=== PATIENT | female | born 1945 | race Caucasian/White ===

== ENCOUNTER 2016-09-17 11:35 | Emergency (ER) | payer OTHER ==
[~2016-09-17] VITALS: Ht 162.6 cm; Wt 59.4 kg
[~2016-09-17 11:35] MED LIST: DIAZ5 PO; HYDR-3516 PO; IBUP-232 PO
[2016-09-17 12:07] VITALS: BP 145/80; PULSE 96; RESP 20; TEMP 98.2; O2SAT 97
[2016-09-17] MEDS ORDERED: FOSA70TA PO (12:44)
--- NOTE | 2016-09-17 13:40 | PD ---
HPI Chief Complaint: ENT Complaint Time Seen by Provider: 13:40 Travel History International Travel<30 days: No Contact w/Intl Traveler<30days: No Traveled to known affect area: No History of Present Illness HPI 70-year-old female presents to the emergency Department with complaint of sore throat since . Reports fever with MAXIMUM TEMPERATURE of 102 three days ago. Temperature of 100.0 this morning and took Advil prior to arrival to the ER. Started out as throat irritation with worsening. Reports burning sensation now. Does have a cough that is worse at night and occasionally throughout the day. Denies nasal congestion, ear pain, headache, nausea, vomiting, abdominal pain. Denies difficulty swallowing, unusual drooling, lump in throat. Reports painful swallowing. Has tried echinacea and other over-the- counter medications with no relief of symptoms. Advil has been reducing fever. After some the house have been sick also with similar symptoms. Allergies to Norgesic. Denies significant past medical history. No other modifying factors or associated signs and symptoms. 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) Asthma: No Autoimmune Disease: No Anxiety: No Depression: No Heart Rhythm Problems: No Cancer: No Cardiovascular Problems: No High Cholesterol: No Chemotherapy: No Chest Pain: No Congestive Heart Failure: No COPD: No Cerebrovascular Accident: No Diabetes: No Diminished Hearing: No Endocrine: No GERD: No Genitourinary: No Hepatitis: No Hiatal Hernia: No Immune Disorder: No Kidney Stones: No Musculoskeletal: Yes Neurologic: Yes Psychiatric: No Reproductive: Yes (adhesions from ovaries and removed fallopian tube) Respiratory: Yes Immunizations Current: Yes Migraines: No Radiation Therapy: No Renal Failure: No Seizures: No Sickle Cell Disease: No Sleep Apnea: No Thyroid Disease: No Ulcer: No Tetanus Vaccination: > 5 Years Influenza Vaccination: Yes ?: Not Menopausal: Yes Past Surgical History Abdominal Surgery: No AICD: No Arteriovenous Shunt: No Body Medical Devices: RIGHT WRIST HARDWARE Cardiac Surgery: No Ear Surgery: No Endocrine Surgery: No Eye Surgery: No Genitourinary Surgery: No Gynecologic Surgery: Yes (adhesions on ovaries and right fallopian removed) Insulin Pump: No Joint Replacement: No Neurologic Surgery: Yes (disintegrated disc between C5-6) Oral Surgery: Yes (tonsils and addenoids removec) Pacemaker: No Thoracic Surgery: No Tonsillectomy: Yes (& adenoids) Other Surgery: Yes (left elbow sx) Social History Alcohol Use: Yes (4-5 week) Tobacco Use: No Substance Use: No Allergies-Medications (Allergen,Severity, Reaction): Coded Allergies: Norgesic (Verified Allergy, Intermediate, Hives, 09/17/16) Reported Meds & Prescriptions Reported Meds & Active Scripts Active Magic Mouthwash Adult Liq (Multi-Ingredient Mouthwash/Gargle) 120 Ml Susp 5 Ml SWISH-SPIT Q3HR PRN Each 5 mL contains: Nystatin 200,000 units, Diphenhydramine 4.25 mg, Viscous Lidocaine 10 mg, Ortega syrup 0.8 mL Amoxicillin 500 Mg Tab 500 Mg PO BID 10 Days Reported Fosamax (Alendronate Sodium) 70 Mg Tab 70 Mg PO Q7D Review of Systems Except as stated in HPI: all other systems reviewed are Neg Physical Exam Narrative GENERAL: Well-nourished, well-developed female patient, in no acute distress SKIN: Warm and dry. No rash. HEAD: Atraumatic. Normocephalic. EYES: Pupils equal and round at 3 mm with brisk reaction. No scleral icterus. No injection or drainage. PERRLA. ENT: Mucosa pink and dry. Pharynx without erythema, exudate, or edema. No Uvular edema. No uvular, palatal, or tonsillar deviation. Airway patent. Voice is hoarse. EARS: Bilateral pinnae and external canals appear within normal limits. Bilateral tympanic membranes without erythema, dullness or perforation.. NECK: Trachea midline. Anterior cervical lymphadenopathy and tenderness. CARDIOVASCULAR: Regular rate and rhythm. No murmur appreciated. 3+ radial pulses. RESPIRATORY: No accessory muscle use. Clear to auscultation. Breath sounds equal bilaterally. GASTROINTESTINAL: Abdomen soft, non-tender, nondistended. Hepatic and splenic margins not palpable. Bowel sounds are active 4 quadrants. MUSCULOSKELETAL: No obvious deformities. No clubbing. No cyanosis. No edema. NEUROLOGICAL: Awake and alert. Oriented 3. No obvious cranial nerve deficits. Motor grossly within normal limits. Normal speech. Moves all extremities. PSYCHIATRIC: Appropriate mood and affect; insight and judgment normal. Data Data Last Documented VS Vital Signs Date Time Temp Pulse Resp B/P Pulse Ox O2 Delivery O2 Flow Rate FiO2 09/17/16 12:40 16 09/17/16 12:07 98.2 96 145/80 97 Orders Influenzae A/B Antigen (09/17/16 13:40) Group A Rapid Strep Screen (09/17/16 13:40) Strep Culture (Group A) (09/17/16 13:40) MDM Medical Decision Making Medical Screen Exam Complete: Yes Emergency Medical Condition: Yes Medical Record Reviewed: Yes Differential Diagnosis Pharyngitis, strep pharyngitis, viral pharyngitis Narrative Course 70-year-old female Patient with sore throat since . Denies lump in throat, difficulty swallowing, unusual drooling. MAXIMUM TEMPERATURE of 102 3 days ago. Temperature 100.0 prior to arrival this morning. Is unremarkable. Influenza and strep ordered. 1413: Influenza and strep negative. Patient requesting prescription for antibiotics despite findings. Discussed viral illness and symptom treatment. Amoxicillin and Magic mouthwash prescribed for home. Patient is medically cleared and stable for discharge. Discussed reasons to return to the emergency department. Instructed patient to follow up with primary care provider. Patient agrees with treatment plan. The patients vital signs are stable and the patient is stable for outpatient follow-up and treatment. Patient discharged home, stable and in no acute distress. Diagnosis Primary Impression: Viral pharyngitis Referrals: Primary Care Physician Patient Instructions: General Instructions, Pharyngitis (ED) Additional Instructions: Get plenty of sleep/rest Rest your voice Drink plenty of fluids to prevent dehydration Use warm saltwater gargles to soothe throat pain Use an air humidifier/turn off ceiling fans Use throat lozenges as needed for sore throat Use ibuprofen or acetaminophen as needed to relieve pain and fever Follow-up with your primary care provider within 2-4 days Return immediately to the emergency department Med/Other Pt SpecificInfo: Prescription(s) given Scripts Xdcvrjot-Gywoulfvuutkaks-Xmvrvxgzt Liq (Magic Mouthwash Adult Liq)120 Ml Susp5 Ml SWISH-SPIT Q3HR PRN (SORE THROAT) #120 ML Ref 0 Each 5 mL contains: Nystatin 200,000 units, Diphenhydramine 4.25 mg, Viscous Lidocaine 10 mg, Ortega syrup 0.8 mL Prov:Gardenia Martinez CODING TECHNICIAN 1/2/17 Amoxicillin 500 Mg Opi847 Mg PO BID 10 Days Ref 0 Prov:Gardenia Martinez 09/17/16 Disposition: 01 DISCHARGE HOME Condition: Stable Gardenia Martinez Sep 17, 2016 13:40
[2016-09-17] MEDS ORDERED: MAGICADU2 SWISH-SPIT (14:12)
[2016-09-17] MEDS ORDERED: AMOX500T PO (14:12)
== END 2016-09-17 14:20 | disposition home or self-care (01) ==
LOC: PHEFT 11:35
DX: J02.9 Acute pharyngitis, unspecified (principal)
CPT/HCPCS: 87081; 87804; 87880; 99283

== ENCOUNTER → 2017-04-11 | Outpatient (CLI) | payer OTHER ==
[~2017-04-11] MED LIST changes: +AMOX500T PO; -DIAZ5 PO; +FOSA70TA PO; -HYDR-3516 PO; -IBUP-232 PO; +MAGICADU2 SWISH-SPIT
[2017-04-11 07:43] LABS: AUTOMATED NEUTROPHIL # 3.2 TH/MM3 (1.8-7.7); BASOPHIL % 0.9 % (0.0-2.0); EOSINOPHIL # 0.3 TH/MM3 (0-0.4); EOSINOPHIL % 6.8 % (0.0-4.0); HEMATOCRIT 35.2 % (35.0-46.0); HEMO FLAGS DIFF FINAL; LYMPH % 22.1 % (9.0-44.0); LYMPHOCYTE # 1.1 TH/MM3 (1.0-4.8); MEAN CORPUSCULAR HEMOGLOBIN 21.6 PG (27.0-34.0); MEAN CORPUSCULAR HGB CONC 32.7 % (32.0-36.0); MONO % 8.1 % (0.0-8.0); NEUT % 62.1 % (16.0-70.0); PLATELET COUNT 255 TH/MM3 (150-450); RED BLOOD COUNT 5.33 MIL/MM3 (4.00-5.30); RED CELL DISTRIBUTION WIDTH 17.1 % (11.6-17.2); WHITE BLOOD COUNT 5.1 TH/MM3 (4.0-11.0)
[2017-04-11 08:06] LABS: ALT (GPT) 24 U/L (10-53); ANION GAP 6 MEQ/L (5-15); AST (GOT) 20 U/L (15-37); BICARBONATE 27.5 MEQ/L (21.0-32.0); BLOOD UREA NITROGEN 15 MG/DL (7-18); CHLORIDE 108 MEQ/L (98-107); GLOMERULAR FILTRATION RATE 85 ML/MIN (>89); GLUCOSE,FASTING 82 MG/DL (74-99); POTASSIUM 4.3 MEQ/L (3.5-5.1); SODIUM (NA) 141 MEQ/L (136-145)
[2017-04-11 08:08] LABS: ALKALINE PHOSPHATASE 59 U/L (45-117); HDL CHOLESTEROL 64.9 MG/DL (40.0-60.0); LDL CHOLESTEROL 106 MG/DL (0-99)
== END ==
LOC: CLAB 07:03
PROVIDERS: ATTEND Family Medicine
DX: M81.0 Age-related osteoporosis without current pathological fracture (principal)
CPT/HCPCS: 36415; 80053; 80061; 82306; 85025

== ENCOUNTER → 2017-06-28 | Outpatient (CLI) | payer OTHER ==
[~2017-06-28] MED LIST changes: +CALC1TAB87 PO; +CHOL1CAP14 PO; +CINN500C13 PO; +DICL75TA PO; +MILK140C PO; +MULTTAB67 PO; +TRAM50TA PO; +VITA200C3 PO; +VITA500T83 PO
[2017-06-28 09:47] LABS: AUTOMATED NEUTROPHIL # 3.4 TH/MM3 (1.8-7.7); BASOPHIL % 0.9 % (0.0-2.0); EOSINOPHIL # 0.2 TH/MM3 (0-0.4); EOSINOPHIL % 3.6 % (0.0-4.0); HEMATOCRIT 36.3 % (35.0-46.0); HEMO FLAGS DIFF FINAL; LYMPH % 20.9 % (9.0-44.0); LYMPHOCYTE # 1.1 TH/MM3 (1.0-4.8); MEAN CORPUSCULAR HEMOGLOBIN 20.9 PG (27.0-34.0); MEAN CORPUSCULAR HGB CONC 31.7 % (32.0-36.0); MONO % 7.8 % (0.0-8.0); NEUT % 66.8 % (16.0-70.0); PLATELET COUNT 246 TH/MM3 (150-450); RED BLOOD COUNT 5.49 MIL/MM3 (4.00-5.30); RED CELL DISTRIBUTION WIDTH 17.1 % (11.6-17.2); WHITE BLOOD COUNT 5.2 TH/MM3 (4.0-11.0)
[2017-06-28 09:57] LABS: APTT (PATIENT) 26.1 SEC (24.3-30.1); PROTHROMBIN TIME - PATIENT 10.8 SEC (9.8-11.6)
--- NOTE | 2017-06-28 10:11 | RADRPT ---
EXAM DATE/TIME: 06/28/2017 09:44 [facility] COMPARISON: CHEST SINGLE AP, April 30, 2016, 12:59. INDICATIONS : Evaluate for pneumothorax, pneumonia, or communicable disease. Pre-op for a total hip replacement. MEDICAL HISTORY : None. SURGICAL HISTORY : None. ENCOUNTER: Initial ACUITY: 1 day PAIN SCORE: 0/10 LOCATION: Bilateral chest FINDINGS: PA and lateral views of the chest reveal a 9 mm nodule a density projecting over the right upper lobe . This overlaps the anterior portion of the second rib. This is a new finding from the prior chest x- ray. Chronic interstitial changes are noted. No acute infiltrates or effusions. Eventration of the he midiaphragms observed. Heart is normal in size. Bony structures are unremarkable. CONCLUSION: 1. 9 mm nodule within the right upper lobe. This is a new finding. Further characterization with CT o f the thorax is needed. 2. No acute infiltrate. Sean Crespo Jr., MD on June 28, 2017 at 9:59 Board Certified Radiologist. This report was verified electronically.
[2017-06-28 10:23] LABS: BICARBONATE 27.4 MEQ/L (21.0-32.0); POTASSIUM 4.4 MEQ/L (3.5-5.1)
[2017-06-28 10:40] LABS: BLOOD, URINE NEG (NEG); GLUCOSE,URINE NEG (NEG); KETONE, URINE NEG (NEG); NITRITE,URINE NEG (NEG); SQUAMOUS EPITHELIAL CELL URINE <1 /hpf (0-5); URINE COLOR YELLOW (YELLW/STRAW)
[2017-06-28 10:45] LABS: COMMENT (UR) CULT NOT INDICATED; CULTURE IF INDICATED CULT NOT INDICATED
--- NOTE | 2017-06-28 14:22 | EKG ---
Date Performed: 06/28/2017 Time Performed: 08:48:57 PTAGE: 71 years EKG: Sinus rhythm NORMAL ECG NO PREVIOUS TRACING DOCTOR: Celestine Lara Interpretating Date/Time 06/28/2017 14:22:01
== END ==
LOC: CPRE 08:19
PROVIDERS: ATTEND Orthopaedic Surgery Sports Medicine
DX: Z01.810 Encounter for preprocedural cardiovascular examination (principal); Z01.812 Encounter for preprocedural laboratory examination; Z01.811 Encounter for preprocedural respiratory examination; M25.559 Pain in unspecified hip; M79.609 Pain in unspecified limb; Z96.60 Presence of unspecified orthopedic joint implant; Z13.9 Encounter for screening, unspecified; Z01.818 Encounter for other preprocedural examination; Z79.01 Long term (current) use of anticoagulants
CPT/HCPCS: 36415; 71020; 80048; 81001; 85025; 85610; 85730; 93005

== ENCOUNTER 2017-07-11 05:06 | Inpatient (IN) | payer OTHER ==
[~2017-07-11] VITALS: Ht 162.6 cm; Wt 61.1 kg
[~2017-07-11 05:06] MED LIST changes: -AMOX500T PO; -MAGICADU2 SWISH-SPIT
[2017-07-11] MEDS ORDERED: INSULIN HUMAN REGULAR 1,000 UNITS/10 ML VIAL SQ PRN (05:30)
[2017-07-11] MEDS ORDERED: TRANEXAMIC ACID INJ 915 MG in SODIUM CHLORIDE 0.9% INJ 100 ML IV SCH (05:30)
[2017-07-11] MEDS ORDERED: SODIUM CHLORID 0.9% 500 ML IV PRN (05:30)
[2017-07-11] MEDS ORDERED: LACTATED RINGER'S 1000 ML IV PRN (05:30)
[2017-07-11] MEDS ORDERED: VANCOMYCIN 1000 MG/NS 250 ML (for <70 kg) IV SCH ×2 (05:30)
[2017-07-11] MEDS ORDERED: ceFAZolin 2 GM PREMIX 50 ML IV SCH (05:30)
[2017-07-11] MEDS ORDERED: CHLORHEXIDINE GLUCONATE 4% SOLN 120 ML BTL TOPICAL SCH (05:30)
[2017-07-11] MEDS ORDERED: EXPAREL PERI-ARTICULAR INJECTION (TOTAL VOL. 60 ML) P-ARTICULR SCH ×2 (05:30)
[2017-07-11] MEDS ORDERED: POVIDONE IODINE 5% (ANTISEPSIS KIT) 4 APPLICATIONS EACH NARE PRN (05:30)
[2017-07-11] MEDS ORDERED: METOPROLOL TARTRATE 25 MG TAB PO PRN (05:30)
[2017-07-11] MEDS ORDERED: CHLORHEXIDINE GLUCONATE 2 % 1 PACK (2 CLOTHS) TOPICAL PRN (05:30)
[2017-07-11] MEDS ORDERED: OMEP40CA2 PO (05:44)
[2017-07-11] MEDS ORDERED: ACETAMINOPHEN 1000 MG/100 ML 100 ML IV ONE (06:15)
[2017-07-11] MEDS ORDERED: GENTAMICIN SULFATE 80 MG/2 ML VIAL ONE (07:16)
--- NOTE | 2017-07-11 08:25 | PD.OP ---
Operative Report Preoperative Diagnosis: (1) Arthritis of right hip Postoperative Diagnosis: (1) Arthritis of right hip Procedure: Right total hip arthroplasty Anesthesia: Frantz GOULD Surgeon: Michael Schaffer Medical Receptionist Assistant(s): Frantz GOULD Resident Surgeon: none Operation and Findings: see dictation Michael Schaffer MD Jul 11, 2017 08:25
[2017-07-11] MEDS ORDERED: MAGNESIUM HYDROXIDE SUSP 30 ML CUP PO PRN (08:30)
[2017-07-11] MEDS ORDERED: MISCELLANEOUS NURSING INFORMATION XX PRN (08:30)
[2017-07-11] MEDS ORDERED: LACTULOSE SYRUP 20 GM/30 ML CUP PO PRN (08:30)
[2017-07-11] MEDS ORDERED: NALOXONE HCL 0.4 MG/ML AMP IV PUSH PRN (08:30)
[2017-07-11] MEDS ORDERED: BISACODYL 10 MG SUPP RECTAL PRN (08:30)
[2017-07-11] MEDS ORDERED: SENNOSIDES 8.6 MG TAB PO PRN (08:30)
[2017-07-11] MEDS ORDERED: traMADol HCL 50 MG TAB PO PRN (08:30)
[2017-07-11] MEDS ORDERED: SODIUM CHLORIDE 0.9% FLUSH 10 ML FLUSH IV FLUSH PRN (08:30)
[2017-07-11] MEDS ORDERED: ONDANSETRON HCL 4 MG/2 ML VIAL IVP PRN (08:30)
[2017-07-11] MEDS ORDERED: oxyCODONE/ACETAMINOPHEN 5 MG/325 MG TAB PO PRN (08:30)
[2017-07-11] MEDS ORDERED: Post-op Orders (for Pharmacy) MISC XX ONE (08:54)
[2017-07-11] MEDS ORDERED: DO NOT ADM ANY ANTICOAGULANT DRUGS PRN (08:54)
[2017-07-11] MEDS: DOCUSATE SODIUM 50 MG/SENNA 8.6 MG TAB PO SCH ×2 (09:00→21:26)
[2017-07-11] MEDS: SODIUM CHLORIDE 0.9% FLUSH 10 ML FLUSH IV FLUSH SCH ×2 (09:00→21:27)
[2017-07-11] MEDS: PANTOPRAZOLE SOD 40 MG DELAYED RELEASE TAB PO SCH ×2 (09:30→12:57)
[2017-07-11] MEDS: ASCORBIC ACID 500 MG TAB PO SCH ×3 (09:30→21:26)
[2017-07-11] MEDS: MULTIVITAMIN TAB PO SCH (09:30)
[2017-07-11] MEDS: HYDROmorphone HCL PCA 6 MG/30 ML IV SCH ×2 (09:43→23:39)
[2017-07-11] MEDS: LACTATED RINGER'S 1000 ML INJ 1,000 ML IV SCH ×2 (09:44→22:24)
[2017-07-11 10:20] VITALS: BP 115/69; PULSE 76; RESP 18; TEMP 95.3; O2SAT 100
--- NOTE | 2017-07-11 12:47 | RADRPT ---
EXAM DATE/TIME: 07/11/2017 07:11 [facility] COMPARISON: No previous studies available for comparison. INDICATIONS : Right anterior hip replacement. MEDICAL HISTORY : Arthritis. SURGICAL HISTORY : Tonsillectomy. ENCOUNTER: Initial ACUITY: 1 day PAIN SCORE: Non-responsive. LOCATION: Right anterior hip. FINDINGS: 2 views of the right hip were obtained and demonstrate the patient is status post right hip arthropla sty. The femoral and acetabular components are intact and in normal alignment. There is overlying art ifact. CONCLUSION: Status post right hip arthroplasty. Edi Kebede MD on July 11, 2017 at 12:44 Board Certified Radiologist. This report was verified electronically.
[2017-07-11] MEDS: CHOLECALCIFEROL (VIT D3) 5000 UNIT CAP PO SCH (12:56)
[2017-07-11] MEDS: CALCIUM/VITAMIN D 250 MG/125 U TAB PO SCH (12:56)
[2017-07-11 13:38] VITALS: O2SAT 98
[2017-07-11] MEDS: PCA - TOTAL MG DILAUDID DELIVERED PER SHIFT OTHER SCH ×2 (14:00→21:27)
[2017-07-11 20:00] VITALS: RESP 18
[2017-07-11 20:15] VITALS: BP 121/69; PULSE 96; RESP 16; TEMP 97.1; O2SAT 99
[2017-07-11 21:35] VITALS: O2SAT 96
[2017-07-11] MEDS: oxyCODONE/ACETAMINOPHEN 5 MG/325 MG TAB PO PRN (23:51)
[2017-07-12] VITALS (8 sets, daily range): BP systolic 102–135; BP diastolic 53–70; PULSE 90–117; RESP 16–18; TEMP 96.9–100; O2SAT 95–99
[2017-07-12] MEDS: oxyCODONE/ACETAMINOPHEN 5 MG/325 MG TAB PO PRN ×3 (04:41→20:25)
[2017-07-12] MEDS: PCA - TOTAL MG DILAUDID DELIVERED PER SHIFT OTHER SCH ×3 (04:41→22:00)
[2017-07-12] MEDS ORDERED: XARE10TA PO (07:12)
[2017-07-12] MEDS ORDERED: OXYC-255 PO (07:12)
[2017-07-12] MEDS ORDERED: WHEEMIS3 (07:16)
[2017-07-12 07:19] LABS: HEMATOCRIT 25.1 % (35.0-46.0); REVIEW FLAG FINAL
--- NOTE | 2017-07-12 07:20 | PD.ORT.PN ---
Subjective Subjective Remarks Patient comfortable Objective Vitals Vital Signs Date Time Temp Pulse Resp B/P (MAP) Pulse Ox O2 Delivery O2 Flow Rate FiO2 07/12/17 04:41 18 07/12/17 03:00 98.1 90 16 135/60 (85) 97 07/12/17 00:45 96.9 95 16 111/60 (77) 99 07/11/17 23:39 18 07/11/17 21:35 96 21 07/11/17 21:27 18 07/11/17 20:15 97.1 96 16 121/69 (86) 99 07/11/17 20:00 18 07/11/17 13:38 98 21 07/11/17 10:20 95.3 76 18 115/69 (84) 100 07/11/17 10:00 80 16 144/62 (89) 99 Nasal Cannula 2 07/11/17 09:45 97.9 79 15 128/60 (82) 99 Nasal Cannula 2 07/11/17 09:43 15 07/11/17 09:30 81 12 133/65 (87) 99 Nasal Cannula 2 07/11/17 09:15 73 14 132/63 (86) 98 Nasal Cannula 2 07/11/17 09:00 79 15 131/61 (84) 98 Nasal Cannula 2 07/11/17 08:57 98.2 87 13 139/69 (92) 100 Simple Mask 6 I/O 07/11/17 07/11/17 07/11/17 07/12/17 07/12/17 07/12/17 07:00 15:00 23:00 07:00 15:00 23:00 Intake Total 2240.8 ml 1180 ml 1144.5 ml Output Total 3800 ml 250 ml Balance -1559.2 ml 930 ml 1144.5 ml Intake Oral 480 ml 240 ml 480 ml IV Total 1760.8 ml 940 ml 664.5 ml Output Urine Total 250 ml Estimated Blood Loss 800 ml Other 3000 ml # Voids 8 # Bowel Movements 0 0 Objective Remarks Right hip dressing in place and dry with slight drainage calves soft NVI Assessment & Plan Ortho Post Op Day #: 1 (right total hip arthroplasty with nondisplaced acetablulum fracture) Problem List: Assessment and Plan POD #1 right total hip arthroplasty with nondisplaced acetabulum fracture Toe touch weight bearing Xarelto for DVT Therapy Wheelchair Home health care Script percocet and xarelto Michael Schaffer MD Jul 12, 2017 07:20
[2017-07-12] MEDS: CALCIUM/VITAMIN D 250 MG/125 U TAB PO SCH (08:21)
[2017-07-12] MEDS: DOCUSATE SODIUM 50 MG/SENNA 8.6 MG TAB PO SCH ×2 (08:21→20:25)
[2017-07-12] MEDS: RIVAROXABAN 10 MG TAB PO SCH (08:21)
[2017-07-12] MEDS: PANTOPRAZOLE SOD 40 MG DELAYED RELEASE TAB PO SCH (08:21)
[2017-07-12] MEDS: ASCORBIC ACID 500 MG TAB PO SCH ×2 (08:21→20:24)
[2017-07-12] MEDS: CHOLECALCIFEROL (VIT D3) 5000 UNIT CAP PO SCH (08:22)
[2017-07-12] MEDS: SODIUM CHLORIDE 0.9% FLUSH 10 ML FLUSH IV FLUSH SCH ×2 (08:22→20:25)
[2017-07-12] MEDS: MULTIVITAMIN TAB PO SCH (08:22)
[2017-07-12] MEDS: LACTATED RINGER'S 1000 ML INJ 1,000 ML IV SCH ×2 (09:28→21:58)
--- NOTE | 2017-07-12 10:37 | MP ---
cc: KAROL YOON M.D. DATE OF SURGERY 07/11/2017 PREOPERATIVE DIAGNOSIS Right hip severe osteoarthritis. POSTOPERATIVE DIAGNOSIS Right hip severe osteoarthritis. PROCEDURE Right total hip arthroplasty - anterior approach using Pr[employer] Prasad DePuy size 52-mm Sector acetabular component with three titanium screws and polyethylene and a size 12 standard offset Corail cementless hip and a 36 mm ceramic head +8.5. ANESTHESIA General SURGEON Karol Yoon MD INSIDE SALES TRAINER SURGEON BRYANNA Coker ESTIMATED BLOOD LOSS 300 cc DRAINS None SPECIMEN None COMPLICATIONS Nondisplaced acetabulum fracture was identified while placing a 50 mm Sector cup. We proceeded to remove this cuff and placed a 52 mm Sector cup with fixation achieved with three large cancellus screws. INDICATIONS Christa Askew is a 71-year-old female with severe debilitating right hip [id number] osteoarthritis. She is indicated for a total hip arthroplasty. The risks and benefits were thoroughly discussed and a detailed informed consent was obtained. The media center assistant, Frantz Hernandez, is an advanced registered nurse practitioner and his skill set was medically necessary for the performance of the operation. PROCEDURE The patient was brought into the operating room and placed under general anesthetic. She was placed on a well padded Vanna table. The right hip was prepped and draped in the usual sterile fashion. IV antibiotics were given. Time-out was completed. A direct anterior approach to the hip was performed. The incision was made. Meticulous hemostasis was achieved throughout the case with the use of Aquamantys cautery and standard electrocautery. We identified the fascia overlying the tensor fascia daniele and split this and then mobilized the tensor fascia daniele laterally and traversed deep with deep retractors and traversed the deep fascial layer and then coagulated the crossing circumflex artery and then proceeded to mobilize the rectus femoris and fully evaluate the anterior capsule and then proceeded with a T-capsulotomy. We placed deep retractors about the femoral neck and used a fluoroscopy imaging to guide us on the neck cut, the cut was made, the femoral head was removed. Deep retractors were placed about the acetabulum. The labrum was excised. The femoral head with sized and we proceeded with sequential reaming all the way up to size 49. We did note with placement of the reamers that it reamed easily into the bone and that the bone was osteoporotic. We proceeded with a 50 mm acetabular shell and impacted this into position. We proceeded to remove the shell and check for the edges to confirm that the labrum had been fully resected and we thoroughly visualized that it had been removed and then attempted again to impact the shell into place and the shell did not obtain fixation and we noticed a small irregularity along the medial wall which was consistent with a nondisplaced acetabular fracture. Therefore, the shell was removed and we went up to a size 52. We did ream with the 51 and it did feel very firm and then we impacted a 52 mm cup into position and this had three screws and we proceeded for placement of all three screws with good fixation. We then proceeded to place our acetabular liner for a 36 mm femoral head. Attention was now drawn to the proximal femur. The femur was maximally externally rotated with a lifting hook underneath the femur. The leg was then dropped across to the contralateral side underneath the other leg and then deep retractor was placed about the proximal femur and the superior capsule additionally released. We then used a box chisel and a canal finder and then chili pepper approach and then sequential broaching up to size 12 and then proceeded with the calcar reamer and then proceeded with our trial reduction. We then checked our stability. We had good stability and then we were satisfied with the position of the prosthesis in the femur. Our final prosthesis was impacted into place and this seated slightly deeper and therefore we did head length again and ultimately we decided the +8.5 head length. This was then reduced, excellent stability again noted. We irrigated out with copious amounts of irrigation. Anatomically repaired the superior and anterior capsule and then proceeded to inject our multi mobile numbing long-acting injection and then proceeded to close in layers with absorbable suture. A hard copy AP and lateral fluoroscopic x-rays were placed in the packs. The fascia was closed in layers with absorbable suture, subcuticular on the skin. Steri-Strips applied. Sterile dressing applied. The patient was awoken and returned to the recovery room in stable condition. MD ROBIN Aparicio/DEAN /7:07 PM /10:07 AM
[2017-07-13] MEDS: oxyCODONE/ACETAMINOPHEN 5 MG/325 MG TAB PO PRN ×4 (00:46→14:36)
[2017-07-13] MEDS: PCA - TOTAL MG DILAUDID DELIVERED PER SHIFT OTHER SCH ×2 (05:12→13:42)
--- NOTE | 2017-07-13 06:50 | PD.ORT.PN ---
Subjective Subjective Remarks Pain controlled. No new complaints. Possible discharge to home today Objective Vitals Vital Signs Date Time Temp Pulse Resp B/P (MAP) Pulse Ox O2 Delivery O2 Flow Rate FiO2 07/12/17 23:11 98.7 113 18 102/53 (69) 95 07/12/17 20:30 100.0 117 18 120/58 (78) 95 07/12/17 18:21 97 21 07/12/17 16:00 99.5 108 18 120/67 (84) 97 07/12/17 14:00 16 07/12/17 12:00 98.2 90 18 115/65 (82) 99 07/12/17 08:00 97.0 90 18 108/70 (83) 99 I/O 07/12/17 07/12/17 07/12/17 07/13/17 07/13/17 07/13/17 07:00 15:00 23:00 07:00 15:00 23:00 Intake Total 1144.5 ml 600 ml 1296.6 ml 480 ml Balance 1144.5 ml 600 ml 1296.6 ml 480 ml Intake Oral 480 ml 600 ml 360 ml 480 ml IV Total 664.5 ml 936.6 ml # Voids 8 5 4 5 # Bowel Movements 0 0 0 0 Result Diagram: 07/12/17 0626 Objective Remarks Right hip dressing in place and dry with slight drainage calves soft NVI Assessment & Plan Assessment and Plan POD #2 right total hip arthroplasty with nondisplaced acetabulum fracture Toe touch weight bearing Xarelto for DVT Therapy Wheelchair Home health care Script percocet and xarelto Discharged home today if cleared by physical therapy and DME is obtained. Edi Freeman Jr. Jul 13, 2017 06:50
[2017-07-13 08:00] VITALS: BP 105/70; PULSE 101; RESP 16; TEMP 99.4; O2SAT 94
[2017-07-13] MEDS: RIVAROXABAN 10 MG TAB PO SCH (08:18)
[2017-07-13] MEDS: PANTOPRAZOLE SOD 40 MG DELAYED RELEASE TAB PO SCH (08:18)
[2017-07-13] MEDS: CALCIUM/VITAMIN D 250 MG/125 U TAB PO SCH (08:18)
[2017-07-13] MEDS: MULTIVITAMIN TAB PO SCH (08:19)
[2017-07-13] MEDS: CHOLECALCIFEROL (VIT D3) 5000 UNIT CAP PO SCH (08:19)
[2017-07-13] MEDS: DOCUSATE SODIUM 50 MG/SENNA 8.6 MG TAB PO SCH (08:19)
[2017-07-13] MEDS: ASCORBIC ACID 500 MG TAB PO SCH (08:19)
[2017-07-13] MEDS: SODIUM CHLORIDE 0.9% FLUSH 10 ML FLUSH IV FLUSH SCH (08:23)
[2017-07-13] MEDS: LACTATED RINGER'S 1000 ML INJ 1,000 ML IV SCH (09:50)
--- NOTE | 2017-07-13 09:55 | HHI.FF ---
Face to Face Verification Diagnosis: (1) Status post total hip replacement, right Physical Therapy Gait training, Safety evaluation Hip: Protocol: Right Right LE Weight Bearing: Toe Touch WB, No Quad Sets Left LE Weight Bearing: WB as tolerated Nursing Dressing Changes: Do not change dressing I have seen patient Christa Askew on 07/13/17. My clinical findings support the need for the requested home health care services because: Limited ability to care for self I certify that my clinical findings support that this patient is homebound because: Post-op weakness Edi Freeman Jr. Jul 13, 2017 09:55
[2017-07-14 08:00] VITALS: BP 112/71; PULSE 66; RESP 16; TEMP 95.6; O2SAT 92
== END 2017-07-13 15:32 | disposition home health service (06) | DRG 470 ==
LOC: HSDI 05:06 → N06B 10:22
PROVIDERS: ADMIT Orthopaedic Surgery Sports Medicine; ATTEND Orthopaedic Surgery Sports Medicine
PROC: 0QH Lower Bones, Insertion (ICD-10-PCS; 2017-07-11)
PROC: 0SR904A Replacement of Right Hip Joint with Ceramic on Polyethylene Synthetic Substitute, Uncemented, Open Approach (ICD-10-PCS; principal; 2017-07-11 07:03)
DX: M16.11 Unilateral primary osteoarthritis, right hip (principal); E55.9 Vitamin D deficiency, unspecified; M96.69 Fracture of other bone following insertion of orthopedic implant, joint prosthesis, or bone plate; Z87.891 Personal history of nicotine dependence; R91.1 Solitary pulmonary nodule; M81.0 Age-related osteoporosis without current pathological fracture
CPT/HCPCS: 73502; 76000; 85014; 85018; 86850; 86900; 86901; 94150; C9290; J0131; J0690; J1170; J1580; J2405; J3370; J7050; J7120

== ENCOUNTER 2017-10-31 15:43 | Emergency (ER) | payer MEDICARE, OTHER ==
[~2017-10-31] VITALS: Ht 162.6 cm; Wt 59.5 kg
[~2017-10-31 15:43] MED LIST changes: -CHOL1CAP14 PO; -CINN500C13 PO; +CINN500C2 PO; +D 50CAP2 PO; -DICL75TA PO; +OMEP40CA2 PO; +OXYC-255 PO; +WHEEMIS3; +XARE10TA PO
[2017-10-31 15:45] VITALS: BP 169/112; PULSE 95; RESP 14; TEMP 98.4; O2SAT 99
[2017-11-01] MEDS ORDERED: DICL75TA PO (08:17)
[2017-11-01] MEDS ORDERED: PRED20 PO (10:11)
== END 2017-10-31 19:49 | disposition left against medical advice (07) ==
LOC: NED 15:43
DX: Z53.21 Procedure and treatment not carried out due to patient leaving prior to being seen by health care provider (principal)
CPT/HCPCS: 99281

== ENCOUNTER 2017-11-01 07:51 | Emergency (ER) | payer OTHER, MEDICARE ==
[~2017-11-01] VITALS: Ht 162.6 cm; Wt 60.0 kg
[2017-11-01 07:56] VITALS: BP 173/84; PULSE 92; RESP 14; TEMP 97.9; O2SAT 100
[2017-11-01] MEDS ORDERED: DICL75TA PO (08:17)
--- NOTE | 2017-11-01 09:51 | RADRPT ---
EXAM DATE/TIME: 11/01/2017 09:17 [facility] COMPARISON: No previous studies available for comparison. INDICATIONS : Patient complains of left pelvic and left hip pain after surgery from right total hip. MEDICAL HISTORY : None. SURGICAL HISTORY : Right total hip ENCOUNTER: Initial ACUITY: 2 months PAIN SCORE: 8/10 LOCATION: Left pelvis FINDINGS: There is a right total hip arthroplasty in place. Arthroplasty components appear well-positioned with out dorys-hardware lucency. Osseous structures are intact without acute bony fracture. Mild to moderat e degenerative change is noted about the left hip. There is also degenerative spondylosis of the lowe r lumbar spine. Sacral arches are grossly intact. Pubic symphysis is maintained. Soft tissues are unr emarkable. CONCLUSION: 1. Total right hip arthroplasty in place without evidence for hardware failure or acute fracture. 2. Mild to moderate degenerative osteoarthritis of the left hip. Murphy Patten MD on November 01, 2017 at 9:47 Board Certified Radiologist. This report was verified electronically.
[2017-11-01] MEDS ORDERED: predniSONE 20 MG TAB PO ONE (10:00)
[2017-11-01] MEDS ORDERED: PRED20 PO (10:11)
--- NOTE | 2017-11-01 10:20 | PD ---
HPI Chief Complaint: Pain: Acute or Chronic Time Seen by Provider: 08:26 Travel History International Travel<30 days: No Contact w/Intl Traveler<30days: No Traveled to known affect area: No History of Present Illness HPI 71-year-old female presents the emergency department with ongoing and worsening left anterior hip discomfort over the past month. Patient underwent a right total hip replacement in late June with Dr. Schaffer, and she states since that time she's undergone rehabilitation but in the past month she's developed worsening left anterior hip pain with ambulation and twisting. She reports that she reportedly had a pelvic fracture from the surgery. She states she saw Dr. Gillette a week ago and he stated things looked to be healing well but she did not mention this worsening pain at that time. Patient has been taking diclofenac, and tramadol as well as occasional Lortab for pain. She feels the pain is worsening in the past several days and this is why she presents today. He states it's an ache-like pain that she's not ambulating and then it is more prominent or sharp. She denies any crepitus. She denies weakness, numbness, or tingling. She is allergic to orphenadrine and caffeine. 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) Asthma: No Autoimmune Disease: No Anxiety: No Depression: No Heart Rhythm Problems: No Cancer: No Cardiovascular Problems: No High Cholesterol: No Chemotherapy: No Chest Pain: No Congestive Heart Failure: No COPD: No Cerebrovascular Accident: No Diabetes: No Diminished Hearing: No Endocrine: No GERD: Yes Genitourinary: No Hepatitis: No Hiatal Hernia: No Immune Disorder: No Kidney Stones: No Musculoskeletal: Yes (osteoarthritis, lower back/neck/hips) Neurologic: No Psychiatric: No Reproductive: Yes (adhesions from ovaries and removed fallopian tube) Respiratory: No Immunizations Current: Yes Migraines: No Radiation Therapy: No Renal Failure: No Seizures: No Sickle Cell Disease: No Sleep Apnea: No Thyroid Disease: No Ulcer: No Influenza Vaccination: Yes ?: Not Menopausal: Yes Past Surgical History Abdominal Surgery: No AICD: No Arteriovenous Shunt: No Body Medical Devices: Left wrist Cardiac Surgery: No Ear Surgery: No Endocrine Surgery: No Eye Surgery: No Genitourinary Surgery: No Gynecologic Surgery: Yes (Adhesions on ovaries and right fallopian removed) Insulin Pump: No Joint Replacement: Yes (R HIP REPLACEMENT 07/11/2017) Neurologic Surgery: Yes (Disintegrated disc between [id number]) Oral Surgery: Yes (tonsils and addenoids removed) Pacemaker: No Thoracic Surgery: No Tonsillectomy: Yes (& adenoids) Other Surgery: Yes (left elbow sx) Social History Alcohol Use: Yes (Socially) Tobacco Use: No Substance Use: No Allergies-Medications (Allergen,Severity, Reaction): Coded Allergies: caffeine (Verified Allergy, Severe, Hives, 11/01/17) orphenadrine (Verified Allergy, Severe, Hives, 11/01/17) Reported Meds & Prescriptions Reported Meds & Active Scripts Active Wheelchair (Device) 1 Mis Mis Ea .ROUTE DIRECTED Endocet (Oxycodone-Acetaminophen) 5-325 mg Tab 1 Tab PO Q4H PRN 20 Days Reported Diclofenac Sodium DR (Diclofenac Sodium) 75 Mg Tabdr 75 Mg PO BID Omeprazole 40 Mg Cap 40 Mg PO DAILY Calcium 600 with Vitamin D (Calcium Carbonate-Cholecalciferol) 600-400 mg-Unit Tab 2 Tab PO DAILY Milk Thistle 140 Mg Cap 480 Mg PO MO,TU,WE,TH,FR Multiple Vitamin 1 Tab 1 Tab PO DAILY D3 Maximum Strength (Cholecalciferol) 5,000 Unit Cap 5,000 Units PO DAILY Eql Cinnamon (Cinnamon) 500 Mg Cap 2,000 Mg PO DAILY Vitamin C ER (Ascorbic Acid) 500 Mg Lina 1,000 Mg PO DAILY Vitamin E 200 Unit Cap 400 Units PO DAILY Tramadol (Tramadol HCl) 50 Mg Tab 50 Mg PO Q12HR PRN Review of Systems Except as stated in HPI: all other systems reviewed are Neg General / Constitutional: No: Fever Eyes: No: Visual changes HENT: No: Headaches Cardiovascular: No: Chest Pain or Discomfort Respiratory: No: Shortness of Breath Gastrointestinal: No: Abdominal Pain Genitourinary: No: Dysuria Musculoskeletal: Positive: Arthralgias, Limited ROM, Pain Skin: No Rash Neurologic: No: Weakness Psychiatric: No: Depression Endocrine: No: Polydipsia Hematologic/Lymphatic: No: Easy Bruising Physical Exam Narrative GENERAL: Patient appears in no acute distress while sitting. SKIN: Warm and dry. Normal color. Normal turgor. No rash. HEAD: Atraumatic. Normocephalic. EYES: Pupils equal and round. No scleral icterus. No injection or drainage. ENT: No nasal bleeding or discharge. Mucous membranes pink and moist. Pharynx is clear. Airway is patent. NECK: Trachea midline. Neck is supple. CARDIOVASCULAR: Regular rate and rhythm. RESPIRATORY: No accessory muscle use. Clear to auscultation. Breath sounds equal bilaterally. MUSCULOSKELETAL: Extremities without clubbing, cyanosis, or edema. No obvious deformities. Patient has no reproducible pain with palpation to the pelvis or hip on the left or right. Patient has well-healed incision site on the right hip. Patient does complain of pain with anterior hip rotation, extension, and lateral rotation in the left. She has no complaints of right hip pain at all. Patient's pain is also exacerbated with bearing weight and turning on the left hip. There is no pain over the greater or lesser trochanter. There is no pain over the symphysis pubis or SI joints. NEUROLOGICAL: Awake and alert. No obvious cranial nerve deficits. Motor grossly within normal limits. Five out of 5 muscle strength in the arms and legs. Normal speech. PSYCHIATRIC: Appropriate mood and affect; insight and judgment normal. Data Data Last Documented VS Vital Signs Date Time Temp Pulse Resp B/P (MAP) Pulse Ox O2 Delivery O2 Flow Rate FiO2 11/01/17 07:56 97.9 92 14 173/84 (113) 100 Room Air Orders Orders Pelvis, Ap/Inlet/Outlet, 3vws (11/01/17 ) Prednisone (Deltasone) (11/01/17 10:00) MDM Medical Decision Making Medical Screen Exam Complete: Yes Emergency Medical Condition: Yes Medical Record Reviewed: Yes Differential Diagnosis Left hip pain. Left hip arthritis. Fracture. Narrative Course Patient is medically stable at time of exam. X-rays of the pelvis is ordered. X-ray showed significant left hip arthritis but otherwise no significant findings per radiologist. Pelvis appears stable on x-ray. Patient is given 40 mg prednisone by mouth now. She will be treated with 20 mg daily for the next 5 days. She is to hold her diclofenac during this time.. Patient should try taking her tramadol for pain as needed and only take the hydrocodone she has if the pain is unbearable. Patient should expect improvement in the next couple of days with the steroids. Patient should follow with her orthopedist if symptoms do not improve or worsen as needed. Diagnosis Primary Impression: Arthritis of left hip Referrals: Orthopedist Patient Instructions: Arthralgia (ED), General Instructions, Hip Pain (ED), Prednisone (By mouth) Additional Instructions: X-ray showed significant left hip arthritis but otherwise no significant findings per radiologist. Pelvis appears stable on x-ray. Patient is given 40 mg prednisone by mouth now. She will be treated with 20 mg daily for the next 5 days. She is to hold her diclofenac during this time.. Patient should try taking her tramadol for pain as needed and only take the hydrocodone she has if the pain is unbearable. Patient should expect improvement in the next couple of days with the steroids. Patient should follow with her orthopedist if symptoms do not improve or worsen as needed. Med/Other Pt SpecificInfo: Prescription(s) given Scripts Prednisone (Prednisone) 20 Mg Tab 20 MG PO DAILY for 5 Days, #5 TAB 0 Refills Prov: Coleman Dugan MD 11/01/17 Disposition: 01 DISCHARGE HOME Condition: Stable Casey Manning Nov 01, 2017 10:20
== END 2017-11-01 10:51 | disposition home or self-care (01) ==
LOC: NEPD 07:51
DX: M16.12 Unilateral primary osteoarthritis, left hip (principal); Z96.641 Presence of right artificial hip joint
CPT/HCPCS: 72190; 99283; J7512

== ENCOUNTER 2017-12-01 10:53 | Emergency (ER) | payer MEDICARE, OTHER ==
[~2017-12-01] VITALS: Ht 162.6 cm; Wt 59.2 kg
[~2017-12-01 10:53] MED LIST changes: +DICL75TA PO; -FOSA70TA PO; +PRED20 PO; -XARE10TA PO
[2017-12-01 11:18] VITALS: BP 152/82; PULSE 98; RESP 16; TEMP 98.6; O2SAT 100
[2017-12-01] MEDS ORDERED: DEXAMETHASONE SOD PHOS 4 MG/ML VIAL IM ONE (12:15)
[2017-12-01] MEDS ORDERED: PRED20 PO (12:16)
--- NOTE | 2017-12-01 12:16 | PD ---
HPI Chief Complaint: Back/ Neck Pain or Injury Time Seen by Provider: 11:50 Travel History International Travel<30 days: No Contact w/Intl Traveler<30days: No Traveled to known affect area: No History of Present Illness HPI This is a 71-year-old female here with left hip pain times several days. She denies injury or trauma. She had a similar episode approximately 3 weeks ago. She reports she was given 40 mg of prednisone during that visit and had symptom improvement. She was discharged home on 20 mg of prednisone which failed to relieve symptoms. She denies paresthesia or weakness in the extremity. She has pain with weightbearing and twisting motion. Symptom severity is moderate. Symptoms are slightly improved with rest. Of note she did have a total right hip replacement of the opposing hip approximately 2 months ago which is not causing her any discomfort at this time. 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) Asthma: No Autoimmune Disease: No Anxiety: No Depression: No Heart Rhythm Problems: No Cancer: No Cardiovascular Problems: No High Cholesterol: No Chemotherapy: No Chest Pain: No Congestive Heart Failure: No COPD: No Cerebrovascular Accident: No Diabetes: No Diminished Hearing: No Endocrine: No Gastrointestinal Disorders: Yes (gerd) GERD: Yes Genitourinary: No Hepatitis: No Hiatal Hernia: No Immune Disorder: No Kidney Stones: No Musculoskeletal: Yes (osteoarthritis, lower back/neck/hips) Neurologic: No Psychiatric: No Reproductive: Yes (adhesions from ovaries and removed fallopian tube) Respiratory: No Immunizations Current: Yes Migraines: No Radiation Therapy: No Renal Failure: No Seizures: No Sickle Cell Disease: No Sleep Apnea: No Thyroid Disease: No Ulcer: No ?: Not Menopausal: Yes Past Surgical History Abdominal Surgery: No AICD: No Arteriovenous Shunt: No Body Medical Devices: Left wrist Cardiac Surgery: No Ear Surgery: No Endocrine Surgery: No Eye Surgery: No Genitourinary Surgery: No Gynecologic Surgery: Yes (Adhesions on ovaries and right fallopian removed) Insulin Pump: No Joint Replacement: Yes (R HIP REPLACEMENT 07/11/2017) Neurologic Surgery: Yes (Disintegrated disc between [id number]) Oral Surgery: Yes (tonsils and addenoids removed) Pacemaker: No Thoracic Surgery: No Tonsillectomy: Yes (& adenoids) Other Surgery: Yes (left elbow sx) Social History Alcohol Use: Yes (Socially) Tobacco Use: No Substance Use: No Allergies-Medications (Allergen,Severity, Reaction): Coded Allergies: caffeine (Verified Allergy, Severe, Hives, 12/01/17) orphenadrine (Verified Allergy, Severe, Hives, 12/01/17) Reported Meds & Prescriptions Reported Meds & Active Scripts Active Wheelchair (Device) 1 Mis Mis Ea .ROUTE DIRECTED Endocet (Oxycodone-Acetaminophen) 5-325 mg Tab 1 Tab PO Q4H PRN 20 Days Reported Diclofenac Sodium DR (Diclofenac Sodium) 75 Mg Tabdr 75 Mg PO BID Omeprazole 40 Mg Cap 40 Mg PO DAILY Calcium 600 with Vitamin D (Calcium Carbonate-Cholecalciferol) 600-400 mg-Unit Tab 2 Tab PO DAILY Milk Thistle 140 Mg Cap 480 Mg PO ,,,,FR Multiple Vitamin 1 Tab 1 Tab PO DAILY D3 Maximum Strength (Cholecalciferol) 5,000 Unit Cap 5,000 Units PO DAILY Eql Cinnamon (Cinnamon) 500 Mg Cap 2,000 Mg PO DAILY Vitamin C ER (Ascorbic Acid) 500 Mg Lina 1,000 Mg PO DAILY Vitamin E 200 Unit Cap 400 Units PO DAILY Tramadol (Tramadol HCl) 50 Mg Tab 50 Mg PO Q12HR PRN Review of Systems Except as stated in HPI: all other systems reviewed are Neg Physical Exam Narrative GENERAL: Alert well-appearing 71-year-old female. She is ambulatory with a slight limp. SKIN: Warm and dry. HEAD: Normocephalic. EYES: No injection or drainage. NECK: Supple CARDIOVASCULAR: Regular rate and rhythm without murmurs, gallops, or rubs. RESPIRATORY: Breath sounds equal bilaterally. No accessory muscle use. GASTROINTESTINAL: Abdomen soft, non-tender, nondistended. MUSCULOSKELETAL: No cyanosis, or edema. Pelvis is nontender and stable. Left hip is nontender to palpation. +TTP left sacroiliac joint. She can flex and externally rotate the left hip without difficulty. 2+ distal pulses. Normal sensation. Brisk cap refill. BACK: Nontender without obvious deformity. No CVA tenderness. Data Data Last Documented VS Vital Signs Date Time Temp Pulse Resp B/P (MAP) Pulse Ox O2 Delivery O2 Flow Rate FiO2 12/01/17 11:18 98.6 98 16 152/82 (105) 100 Orders Orders Dexamethasone Inj (Decadron Inj) (12/01/17 12:15) [facility] Medical Decision Making Medical Screen Exam Complete: Yes Emergency Medical Condition: Yes Differential Diagnosis Left hip strain, left hip fracture unlikely, SI joint pain, pelvic fracture unlikely, sciatica Narrative Course 71-year-old female here with left SI joint pain. She reports she's had similar symptoms in the past which is improved with steroids. She'll be given a shot of Decadron in the ED. On reexam she reports symptom improvement. She'll be discharged home with short dose of prednisone. Diagnosis Primary Impression: Sacroiliac joint pain Referrals: Primary Care Physician Additional Instructions: Take prednisone with small amount of food. Follow-up with primary doctor or orthopedist. Avoid heavy lifting or strenuous activity. Return if you develop new or worsening symptoms. Scripts Prednisone (Prednisone) 20 Mg Tab 40 MG PO DIRECTED for 4 Days, TAB 0 Refills Prov: Ritika Faustin 12/01/17 Disposition: 01 DISCHARGE HOME Condition: Stable Ritika Faustin Dec 01, 2017 12:16
== END 2017-12-01 12:31 | disposition home or self-care (01) ==
LOC: PHEFT 10:53
DX: M53.3 Sacrococcygeal disorders, not elsewhere classified (principal); M47.9 Spondylosis, unspecified; M16.10 Unilateral primary osteoarthritis, unspecified hip; M19.90 Unspecified osteoarthritis, unspecified site; K21.9 Gastro-esophageal reflux disease without esophagitis; Z96.641 Presence of right artificial hip joint; Z79.899 Other long term (current) drug therapy
CPT/HCPCS: 96372; 99284; J1100